=== PATIENT | male | born 1965 | race Caucasian/White ===

== ENCOUNTER 2025-02-14 08:45 | Outpatient (RCR) | payer BC, SELFPAY ==
[2025-01-31 09:09] VITALS: BP 149/60; PULSE 62; RESP 18; TEMP 35.8
--- NOTE | 2025-01-31 12:54 | PCM.WC.HP ---
History of Present Illness Date of Service: 01/31/25 Chief Complaint: Right hallux ulceration History of Wound: Patient is a 59-year-old male who presents to the wound care center for nonhealing ulceration of the right distal hallux tuft. 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 Patient was previously following with Dr. Kearns who was discussing likely surgical intervention for a hallucal IPJ fusion to treat underlying deformity. Patient is changing dressing daily to the right hallux with Neosporin and dry sterile gauze. He previously feels that the ulceration started after removal of his right great toe nail to treat onychomycosis. He does follow with neurologist Dr. Drake for neuropathy workup. He was prescribed gabapentin for his neuropathy but does not wish to take this due to side effects such as drowsiness. Patient states the ulceration has been present for the last 5 to 6 weeks and has not demonstrated much improvement with current treatment. He was referred to the wound care center for continued care of the ulceration and further evaluation. He currently denies N/V/F/chills. Denies further complaints. FORMERLY [facility], 1928–1983 Allergy/AdvReac Type Severity Reaction Status Date / Time No Known Allergies Allergy Verified 01/31/25 09:01 ROS Constitutional Constitutional: Denies anorexia, change in weight, chills or fever(s) Eyes Eyes: Denies blurry vision, change in vision or double vision ENT HEENT: Denies dysphagia, nasal congestion or nasal discharge Cardiovascular Cardiovascular: Denies chest pain, claudication or palpitations Respiratory/Chest Respiratory/Chest: Denies cough, shortness of breath at rest or wheezing Gastrointestinal Gastrointestinal: Denies abdominal pain, constipation, diarrhea, nausea or vomiting Genitourinary Genitourinary: Denies dysuria, hematuria or urinary frequency Musculoskeletal Musculoskeletal: Denies joint pain, joint stiffness or joint swelling Integumentary Integumentary: Denies jaundice, lesions, pruritus or rash Neurologic Neurologic: Denies dizziness, numbness or seizures Psychiatric Psychiatric: Denies anxiety or depression Endocrine Endocrinology: Denies cold intolerance or heat intolerance Hematologic/Lymphatic Hematologic/Lymphatic: Denies easy bleeding or easy bruising Vital Signs Vital Signs Vital Signs: 01/31/25 09:09 Temperature 96.5 F L Temperature Source Temporal Pulse Rate 62 Respiratory Rate 18 Blood Pressure 149/60 H Blood Pressure Mean 89 Blood Pressure Source Monitor Blood Pressure Position Semi-Fowlers Blood Pressure Location Right Arm Oxygen Delivery Method Room Air Physical Exam Const alert, oriented x3 and no apparent distress General Appearance: cooperative HEENT Head and Scalp: normal to inspection Eyes General Eye: normal appearance of both eyes Neck General: normal visual inspection Lymph Lymphatic: no lymphadenopathy noted and no lymphedema noted Resp normal respiratory effort Cardio regular rate and regular rhythm Extremity no calf tenderness Extremity Narrative: Right lower extremity: Vascular: DP and PT pulses palpable, CFT less than 3 seconds digits, normal temperature gradient. Hair growth is diminished to digits. Neurologic: Gross sensation intact. Protective sensation is diminished secondary to idiopathic neuropathy Musculoskeletal: Muscle strength 5/5 age-appropriate. Decreased range of motion of the ankle joint dorsiflexion without pain or crepitus with the knee extended. Decreased range of motion of the first MTPJ without pain or crepitus. Hallux malleus deformity noted. No pain to palpation of calf. No pain to palpation about the ulcerative site. Dermatologic: There is a full-thickness ulceration appreciated to the distal medial hallux tuft secondary to hallux malleus deformity. Ulceration demonstrates mixed fibrogranular layer. There is some surrounding hyperkeratosis about the ulcerative rim. No signs of infection. Skin no rashes or lesions noted Neuro moves all extremities Debridement Note Debridement Note Wound debrided: Right hallux distal tuft Laterality: Right Wound Grade/Stage: Schulz stage I Type of Debridement: Excisional debridement Anesthesia Used: 5% Lidocaine Gel Depth: Down to and including healthy tissue and in the subcutaneous layer Percentage of wound debrided: 100 Instrument Used: #15 blade Tissue Removed: Fibrous, devitalized subcutaneous, biofilm, slough Severity: Fat Layer Exposed Amount of bleeding with debridement: Mild Bleeding Controlled with: Compression and gauze Patient tolerated procedure: Patient tolerated procedure well Post-Debridement Measurements and Additional Note: Post-Debridement Measurements/Treatment - Nurse 1 - General Ulcer Assessment Start: 01/31/25 08:48 Freq: Status: Active Protocol: SHELLEY Activity Type Activity Date Activity User E-sign Co-sign Detail Recorded Client Recorded Date Recorded By Document 01/31/25 09:09 MIMA [id number] 01/31/25 09:29 DS 01/31/25 09:09 - Today's Visit Information Type of service Initial Visit Arrival Mode Ambulatory Patient Identification Verified (Name & Yes ) Patient Requires Transmission-Based No Precautions Safety Precautions Fall Prevention Vital Signs Temperature (97.8 F-99.1 F) 96.5 F L Temperature Source Temporal Pulse Rate (60-100) 62 Pulse Location Monitor Respiratory Rate (12-18) 18 Respiratory rate source Observation Oxygen Delivery Method Room Air Blood Pressure (90/60-120/80) 149/60 H Blood Pressure Mean 89 Source Monitor Position Semi-Fowlers Blood Pressure Location Right Arm Pain Scale: 0-10 Numeric Is Patient Pain Free? No toe -Description Aching -Intensity 3 -Duration (hours) Acute -Pain Behavior No Change in Behavior -Pain Aggravating Factors Walking -Alleviating Factors/Interventions Emotional Support Lower Extremity Assessment/ Foot Assessment/ Toe Nail Assessment Right -Posterior Tibial Palpable Yes -Posterior Tibial Doppler Multiphasic -Dorsalis Pedis Palpable Yes -Dorsalis Pedis Doppler Multiphasic -Hair Growth on Legs Yes -Hair Growth on Toes Yes -Temperature of Extremity Cool -Prior Foot Ulcer No -Charcot Joint No -Prior Amputation No -Thick No -Discolored No -Deformed Yes -Improper Length & Hygeine No Communication Assessment Preferred language [place] Able to Read Yes Able to Write Yes Communication Tools None Right Hearing Abillity Hard of Hearing ,Use of Hearing Aid Left Hearing Abillity Hard of Hearing ,Use of Hearing Aid Visual Assistive Devices Glasses Teaching Assessment Preferences Verbal,Written, Demonstration Barriers to Learning None Readiness To Learn Excellent Willingness to Engage in Self Management High Activies Readiness to Engage in Self Management High Activities Anxiety Level Calm Cooperation Cooperative Perception Coherent Interest in Health Problem Asks Questions Education Importance Acknowledges Need Does Patient Smoke tobacco or other No substances Is Patient Diabetic No Functional Assessment Recent Decline in Ability to Perform Denies Any Declines Culture/Mu-Ism/Circulation Sales Representative Cultural/Mu-Ism Needs that may affect No Treatment Plan Teaching: Wound Center *Welcome to the Wound Center -Person Taught Patient -Teaching Method Discussion -Response to teaching Verbalize Understanding WC - Nurse 1 - General Ulcer Measurement Start: 01/31/25 08:48 Freq: Status: Active Protocol: Activity Type Activity Date Activity User E-sign Co-sign Detail Recorded Client Recorded Date Recorded By Document 01/31/25 09:46 DS [id number] 01/31/25 09:46 DS 01/31/25 09:46 Wound Center Nurse 1 #1 right great toe -Current Size (cm) - Length 0.4 -Current Size (cm) - Width 0.4 -Current Size (cm) - Depth 0.1 -Total Square Cm 0.16 -Date of Last Picture (Recall this 01/31/25 field) -Photo Taken Yes -Tunneling No -Undermining/Tunneling No -Circular Undermining No -Exudate Amt None Present -Wound Margin Distinct, Outline Attached -Granulation Amt Small (1-33%) -Granulation Quality Jamul -Texture (Amanda-wound Skin Appearance) Assessed,Callus -Moisture (Amanda-wound Skin Appearance) Assessed -Color (Amanda-wound Skin Appearance) Assessed -Temperature (Amanda-wound Skin No Abnormality Appearance) (Pt Warm) -Tenderness on Palpation (Amanda-wound No Skin Appearance) -Ulcer Cleansing Soap and Water -Anesthetic Used 5% Lidocaine Gel WC - Nurse 2 - General Ulcer CM Notes Start: 01/31/25 08:48 Freq: Status: Active Protocol: Activity Type Activity Date Activity User E-sign Co-sign Detail Recorded Client Recorded Date Recorded By Document 01/31/25 09:45 BMF [id number] 01/31/25 09:56 BMF Edit Result 01/31/25 09:45 BMF (1) [id number] 01/31/25 09:58 BMF (1) #1- R GREAT TOE PLANTAR - Post Debridement (cm) - Length => 0.4 - Post Debridement (cm) - Width => 0.4 - Post Debridement (cm) - Depth => 0.1 - Total Square (Post) (cm) => 0.16 - Area of Debridement (cm) - Length => 0.4 - Area of Debridement (cm) - Width => 0.4 - Total Square (Area) (cm) => 0.16 01/31/25 09:45 Wound Center Nurse 2 #1- R GREAT TOE PLANTAR -Time 09:46 -Correct Patient Yes -Correct Side, Site, Position Yes -Correct Procedure Yes -Procedure Performed Yes -Type of Procedure Debridement -Clinical Debridement Subcutaneous -Tissue Removed Subcutaneous -Post Debridement (cm) - Length 0.4 -Post Debridement (cm) - Width 0.4 -Post Debridement (cm) - Depth 0.1 -Total Square (Post) (cm) 0.16 -Area of Debridement (cm) - Length 0.4 -Area of Debridement (cm) - Width 0.4 -Total Square (Area) (cm) 0.16 -Tunneling No -Undermining/Tunneling No -Circular Undermining No -Wound/Ulcer Outcome Not Healed -Ulcer Cleansing Rinsed/ Irrigated with Saline -Foul Odor after Cleansing No -Bioengineered Tissue No -Bleeding Controlled with Pressure -Treatment Response Procedure Tolerated Well -Debridement - Subq, 1st 20sq cm Yes Pain Scale: 0-10 Numeric Is Patient Pain Free? Yes - Nurse 3 - General Ulcer D/C NN Start: 01/31/25 08:48 Freq: Status: Active Protocol: Activity Type Activity Date Activity User E-sign Co-sign Detail Recorded Client Recorded Date Recorded By Document 01/31/25 10:03 DL [id number] 01/31/25 10:08 DL 01/31/25 10:03 Wound Care Center Nurse 3 #1- R GREAT TOE PLANTAR -Ulcer Cleansing Rinsed/ Irrigated with Saline -Foul Odor after Cleansing No -Primary Dressing Applied Promogran [place] Matter -Primary Dressing Covered/Secured with Dry Gauze, Secured with Tape -Other Covering COBAN -Promogran [place] Matter 1 Pain Scale: 0-10 Numeric Is Patient Pain Free? Yes WC - Visit Discharge Discharge Condition Stable Ambulatory Status Ambulatory Transportation Private Auto Assessment/Plan Assessment/Plan (1) Pressure ulcer of toe of right foot, stage 2: CODE(S): L89.892 - Pressure ulcer of other site, stage 2 (2) Hallux malleus of right foot: CODE(S): M20.31 - Hallux varus (acquired), right foot (3) Other hereditary and idiopathic neuropathies: CODE(S): G60.8 - Other hereditary and idiopathic neuropathies PLAN: Plan Patient seen and evaluated Predebridement measurement 0.3 cm x 0.3 cm x 0.1 cm Postdebridement measurement 0.4 cm x 0.4 cm x 0.1 cm Ulceration underwent debridement as noted in the clinical panel above. Shawnee applied to the wound base with dry sterile dressing. He is to change dressing daily. Offloading felt padding placed to plantar aspect of first metatarsal head simulating Delgado's extension in addition to just below the base of the distal phalanx to simulate crest style padding on his current orthotic for offloading of the distal hallux. I suspect that his hallux malleus deformity is contributing to continued ulceration. Also discussed importance of not clawing his toes to the ground to aid in stability. Discussed surgical intervention/options today, 01/31/25 with the patient consisting of flexor tenotomy/tendon lengthening versus arthrodesis of the hallucal interphalangeal joint. He has previously had these options discussed with Dr. Kearns when he was under his care prior to wound care center treatment. Discussed 1 of these 2 options would be necessary to heal the ulceration for definitive treatment as his deformity is contributing to the ulceration and will not heal without any intervention performed. All questions were answered to the patient's level of satisfaction pertaining to both surgical options. Typical postoperative period was reviewed for both options. 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 I have discussed with him that he should think over these 2 options presented and pick the best option that fits his lifestyle so that he may still heal. Discussed with him we may attempt current conservative treatment of offload this but if ulcer fails to heal or he experiences recidivism of the site intervention may be necessary to prevent continued problems, infection, or amputation. Discussed adequate protein intake to aid in wound healing. [place] supplementation versus boost was recommended. Discussed signs and symptoms of infection. Discussed if he notices redness around the ulcerative site that moves up the toe and onto the foot, any purulent drainage from the wound site, increasing foul odor from the wound site, or if he experiences fever greater than 101 degree accompanied by nausea, vomiting, chills of these are signs of a progressing infection and he should report to the ED for IV antibiotics and for further evaluation. He is understanding of this today. The following work up and care recommendations were made: Dressing: Shawnee and dressed with dry sterile dressing. Change dressing daily. Wash: Soap and water Tissue growth optimization: Shawnee Offload: Offloading padding on current orthotic Vascular: DP and PT pulses palpable with adequate cap fill time, do not feel this is impacting healing status Edema: None Infection: No signs of infection Pain: May take [id number] Tylenol as needed for discomfort Host factors: Advanced age, increased pressure at the distal toe/hallux malleus deformity right foot I answered all the patient's questions. To return to the wound healing center in 1 week or call sooner if the patient has any questions or concerns.
--- NOTE | 2025-01-31 13:43 | WC ---
PHOTO-RIGHT GREAT TOE 01/31/25
[2025-02-07 08:35] VITALS: BP 144/88; PULSE 68; RESP 16; TEMP 35.9
--- NOTE | 2025-02-07 09:00 | PN.PCM_ITS ---
History of Present Illness Date of Service: 02/07/25 Chief Complaint: Right hallux ulceration History of Wound: Patient is a 59-year-old male who presents to the wound care center for nonhealing ulceration of the right distal hallux tuft. 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 Patient was previously following with Dr. Kearns who was discussing likely surgical intervention for a hallucal IPJ fusion to treat underlying deformity. Patient is changing dressing daily to the right hallux with Neosporin and dry sterile gauze. He previously feels that the ulceration started after removal of his right great toe nail to treat onychomycosis. He does follow with neurologist Dr. Drake for neuropathy workup. He was prescribed gabapentin for his neuropathy but does not wish to take this due to side effects such as drowsiness. Patient states the ulceration has been present for the last 5 to 6 weeks and has not demonstrated much improvement with current treatment. He was referred to the wound care center for continued care of the ulceration and further evaluation. He currently denies N/V/F/chills. Denies further complaints. Subjective Subjective This is a 59-year-old male who returns to the wound care center today for continued care of a plantar distal tuft ulceration of the right hallux secondary to hammertoe deformity. Patient reports that he continues to dress the site daily and is noticing that the wound is decreasing in size thinks to current offloading measures. Denies constitutional symptoms today. Denies further complaints Objective Data Objective Data Vital Signs: Vital Signs Temp Pulse Resp BP O2 Del Method 96.7 F L 68 16 144/88 H Room Air 02/07/25 08:35 02/07/25 08:35 02/07/25 08:35 02/07/25 08:35 01/31/25 09:09 Oxygen Delivery Method Room Air Physical Exam Const alert, oriented x3 and no apparent distress General Appearance: cooperative Eyes General Eye: normal appearance of both eyes Neck General: normal visual inspection Lymph Lymphatic: no lymphadenopathy noted and no lymphedema noted Resp normal respiratory effort Cardio regular rate and regular rhythm Extremity no calf tenderness Extremity Narrative: Right lower extremity: Vascular: DP and PT pulses palpable, CFT less than 3 seconds digits, normal temperature gradient. Hair growth is diminished to digits. Neurologic: Gross sensation intact. Protective sensation is diminished secondary to idiopathic neuropathy Musculoskeletal: Muscle strength 5/5 age-appropriate. Decreased range of motion of the ankle joint dorsiflexion without pain or crepitus with the knee extended. Decreased range of motion of the first MTPJ without pain or crepitus. Hallux malleus deformity noted. No pain to palpation of calf. No pain to palpation about the ulcerative site. Dermatologic: There is a full-thickness ulceration appreciated to the distal medial hallux tuft secondary to hallux malleus deformity. Ulceration demonstrates mixed fibrogranular layer. There is some surrounding hyperkeratosis about the ulcerative rim. No signs of infection. Skin no rashes or lesions noted Neuro moves all extremities Debridement Note Debridement Note Wound debrided: Distal tuft right hallux Laterality: Right Wound Grade/Stage: Schulz stage I Type of Debridement: Excisional debridement Anesthesia Used: 5% Lidocaine Gel Depth: Down to and including healthy tissue and in the subcutaneous layer Percentage of wound debrided: 100 Instrument Used: - (1 mm curette) Tissue Removed: Fibrous, devitalized subcutaneous, biofilm, slough Severity: Fat Layer Exposed Amount of bleeding with debridement: Mild Bleeding Controlled with: Compression and gauze Patient tolerated procedure: Patient tolerated procedure well Post-Debridement Measurements and Additional Note: Post-Debridement Measurements/Treatment - Nurse 1 - General Ulcer Assessment Start: 01/31/25 08:48 Freq: Status: Active Protocol: SHELLEY Activity Type Activity Date Activity User E-sign Co-sign Detail Recorded Client Recorded Date Recorded By Document 01/31/25 09:09 DS [id number] 01/31/25 09:29 DS Document 02/07/25 08:35 DL [id number] 02/07/25 08:39 DL 01/31/25 02/07/25 09:09 08:35 - Today's Visit Information Type of service Initial Visit 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 ) Arrival Mode Ambulatory Ambulatory Transfer Assistance None Patient Identification Verified (Name & Yes Yes ) Patient Requires Transmission-Based No No Precautions Safety Precautions Fall Prevention Vital Signs Temperature (97.8 F-99.1 F) 96.5 F L 96.7 F L Temperature Source Temporal Temporal Pulse Rate (60-100) 62 68 Pulse Location Monitor Monitor Respiratory Rate (12-18) 18 16 Respiratory rate source Observation Observation Oxygen Delivery Method Room Air Blood Pressure (90/60-120/80) 149/60 H 144/88 H Blood Pressure Mean (mm Hg) 89 106 Source Monitor Monitor Position Semi-Fowlers Blood Pressure Location Right Arm History Since Last Visit- (Skip if this is Patient's initial visit) Have you changed medications since your No last visit? Any new allergies or adverse reactions No Had a fall/change in ADL's that may No increase risk of falls Signs or symptoms of abuse and/or No neglect since last visit Have you been in the hospital since your No last visit? Has dressing in place as prescribed Yes Has compression in place as prescribed N/A Has offloadiing in place as prescribed Yes Experienced any changes in pain level or No management Right Footwear Ancram/Foam Pain Scale: 0-10 Numeric Is Patient Pain Free? No Yes toe -Description Aching -Intensity 3 -Duration (hours) Acute -Pain Behavior No Change in Behavior -Pain Aggravating Factors Walking -Alleviating Factors/Interventions Emotional Support Lower Extremity Assessment/ Foot Assessment/ Toe Nail Assessment Right -Posterior Tibial Palpable Yes -Posterior Tibial Doppler Multiphasic -Dorsalis Pedis Palpable Yes -Dorsalis Pedis Doppler Multiphasic -Hair Growth on Legs Yes -Hair Growth on Toes Yes -Temperature of Extremity Cool -Prior Foot Ulcer No -Charcot Joint No -Prior Amputation No -Thick No -Discolored No -Deformed Yes -Improper Length & Hygeine No Communication Assessment Preferred language [place] Able to Read Yes Able to Write Yes Communication Tools None Right Hearing Abillity Hard of Hearing ,Use of Hearing Aid Left Hearing Abillity Hard of Hearing ,Use of Hearing Aid Visual Assistive Devices Glasses Teaching Assessment Preferences Verbal,Written, Demonstration Barriers to Learning None Readiness To Learn Excellent Willingness to Engage in Self Management High Activies Readiness to Engage in Self Management High Activities Anxiety Level Calm Cooperation Cooperative Perception Coherent Interest in Health Problem Asks Questions Education Importance Acknowledges Need Does Patient Smoke tobacco or other No substances Is Patient Diabetic No Functional Assessment Recent Decline in Ability to Perform Denies Any Declines Culture/Nondenominational/Dukey Rider Cultural/Nondenominational Needs that may affect No Treatment Plan Teaching: Wound Center *Welcome to the Wound Center -Person Taught Patient -Teaching Method Discussion -Response to teaching Verbalize Understanding WC - Nurse 1 - General Ulcer Measurement Start: 01/31/25 08:48 Freq: Status: Active Protocol: Activity Type Activity Date Activity User E-sign Co-sign Detail Recorded Client Recorded Date Recorded By Document 01/31/25 09:46 DS [id number] 01/31/25 09:46 DS Document 02/07/25 08:35 DL [id number] 02/07/25 08:39 DL 01/31/25 02/07/25 09:46 08:35 Wound Center Nurse 1 #1 right great toe -Current Size (cm) - Length 0.4 -Current Size (cm) - Width 0.4 -Current Size (cm) - Depth 0.1 -Total Square Cm 0.16 -Date of Last Picture (Recall this 01/31/25 field) -Photo Taken Yes -Tunneling No -Undermining/Tunneling No -Circular Undermining No -Exudate Amt None Present -Wound Margin Distinct, Outline Attached -Granulation Amt Small (1-33%) -Granulation Quality Renova -Texture (Amanda-wound Skin Appearance) Assessed,Callus -Moisture (Amanda-wound Skin Appearance) Assessed -Color (Amanda-wound Skin Appearance) Assessed -Temperature (Amanda-wound Skin No Abnormality Appearance) (Pt Warm) -Tenderness on Palpation (Amanda-wound No Skin Appearance) -Ulcer Cleansing Soap and Water -Anesthetic Used 5% Lidocaine Gel #1- R GREAT TOE PLANTAR -Current Size (cm) - Length 0.1 -Current Size (cm) - Width 0.1 -Current Size (cm) - Depth 0.2 -Total Square Cm 0.01 -Photo Taken Yes -Maximum Distance #2 (cm) 0.1 -Circular Undermining Yes -Exudate Amt None Present -Wound Margin Distinct, Outline Attached -Granulation Amt Small (1-33%) -Granulation Quality Pale,Renova -Necrosis Amt None Present (0 %) -Structure Exposed N/A -Texture (Amanda-wound Skin Appearance) Callus -Moisture (Amanda-wound Skin Appearance) No Abnormality -Color (Amanda-wound Skin Appearance) No Abnormality -Temperature (Amanda-wound Skin No Abnormality Appearance) (Pt Warm) -Tenderness on Palpation (Amanda-wound No Skin Appearance) -Ulcer Cleansing Rinsed/ Irrigated with Saline -Foul Odor after Cleansing No -Anesthetic Used 5% Lidocaine Gel WC - Nurse 2 - General Ulcer CM Notes Start: 01/31/25 08:48 Freq: Status: Active Protocol: Activity Type Activity Date Activity User E-sign Co-sign Detail Recorded Client Recorded Date Recorded By Document 01/31/25 09:45 BMF [id number] 01/31/25 09:56 BMF Edit Result 01/31/25 09:45 BMF (1) [id number] 01/31/25 09:58 BMF Document 02/07/25 08:48 BMF [id number] 02/07/25 08:51 BMF (1) #1- R GREAT TOE PLANTAR - Post Debridement (cm) - Length => 0.4 - Post Debridement (cm) - Width => 0.4 - Post Debridement (cm) - Depth => 0.1 - Total Square (Post) (cm) => 0.16 - Area of Debridement (cm) - Length => 0.4 - Area of Debridement (cm) - Width => 0.4 - Total Square (Area) (cm) => 0.16 01/31/25 02/07/25 09:45 08:48 Wound Center Nurse 2 #1- R GREAT TOE PLANTAR -Time 09:46 08:48 -Correct Patient Yes Yes -Correct Side, Site, Position Yes Yes -Correct Procedure Yes Yes -Procedure Performed Yes Yes -Type of Procedure Debridement Debridement -Clinical Debridement Subcutaneous Subcutaneous -Tissue Removed Subcutaneous Subcutaneous -Post Debridement (cm) - Length 0.4 0.1 -Post Debridement (cm) - Width 0.4 0.1 -Post Debridement (cm) - Depth 0.1 0.1 -Total Square (Post) (cm) 0.16 0.01 -Area of Debridement (cm) - Length 0.4 0.1 -Area of Debridement (cm) - Width 0.4 0.1 -Total Square (Area) (cm) 0.16 0.01 -Tunneling No No -Undermining/Tunneling No No -Circular Undermining No No -Wound/Ulcer Outcome Not Healed Not Healed -Ulcer Cleansing Rinsed/ Rinsed/ Irrigated with Irrigated with Saline Saline -Foul Odor after Cleansing No No -Bioengineered Tissue No No -Bleeding Controlled with Pressure Pressure -Treatment Response Procedure Procedure Tolerated Well Tolerated Well -Debridement - Subq, 1st 20sq cm Yes Yes Pain Scale: 0-10 Numeric Is Patient Pain Free? Yes Yes WC - Nurse 3 - General Ulcer D/C NN Start: 01/31/25 08:48 Freq: Status: Active Protocol: Activity Type Activity Date Activity User E-sign Co-sign Detail Recorded Client Recorded Date Recorded By Document 01/31/25 10:03 DL [id number] 01/31/25 10:08 DL 01/31/25 10:03 Wound Care Center Nurse 3 #1- R GREAT TOE PLANTAR -Ulcer Cleansing Rinsed/ Irrigated with Saline -Foul Odor after Cleansing No -Primary Dressing Applied Promogran [place] Matter -Primary Dressing Covered/Secured with Dry Gauze, Secured with Tape -Other Covering CO[place]AN -Promogran [place] Matter 1 Pain Scale: 0-10 Numeric Is Patient Pain Free? Yes WC - Visit Discharge Discharge Condition Stable Ambulatory Status Ambulatory Transportation Private Auto Assessment/Plan Assessment/Plan (1) Pressure ulcer of toe of right foot, stage 2: CODE(S): L89.892 - Pressure ulcer of other site, stage 2 (2) Hallux malleus of right foot: CODE(S): M20.31 - Hallux varus (acquired), right foot (3) Other hereditary and idiopathic neuropathies: CODE(S): G60.8 - Other hereditary and idiopathic neuropathies PLAN: Plan Patient seen and evaluated Predebridement measurement 0.1 cm x 0.1 cm x 0.1 cm Postdebridement measurement 0.1 cm x 0.1 cm x 0.1 cm Ulceration underwent debridement as noted in the clinical panel above. Shawnee applied to the wound base with dry sterile dressing. He is to change dressing daily. Offloading felt padding remains in place to plantar aspect of first metatarsal head simulating Delgado's extension in addition to just below the base of the distal phalanx to simulate crest style padding on his current orthotic for offloading of the distal hallux. I suspect that his hallux malleus deformity is contributing to continued ulceration. This is confirmed by decreasing ulceration size at current visit today and less callus formation about the ulcerative rim due to the offloading p adding that was placed at previous visit. Also discussed importance of not clawing his toes to the ground to aid in stability. Discussed surgical intervention/options 01/31/25 with the patient consisting of flexor tenotomy/tendon lengthening versus arthrodesis of the hallucal interphalangeal joint. He has previously had these options discussed with Dr. Kearns when he was under his care prior to wound care center treatment. Discussed 1 of these 2 options would be necessary to heal the ulceration for definitive treatment as his deformity is contributing to the ulceration and will not heal without any intervention performed. All questions were answered to the patient's level of satisfaction pertaining to both surgical options. Typical postoperative period was reviewed for both options. 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 I have discussed with him that he should think over these 2 options presented and pick the best option that fits his lifestyle so that he may still heal. Discussed with him we may attempt current conservative treatment of offload this but if ulcer fails to heal or he experiences recidivism of the site intervention may be necessary to prevent continued problems, infection, or amputation. Discussed adequate protein intake to aid in wound healing. South supplem entation versus boost was recommended. Discussed signs and symptoms of infection. Discussed if he notices redness around the ulcerative site that moves up the toe and onto the foot, any purulent drainage from the wound site, increasing foul odor from the wound site, or if he experiences fever greater than 101 degree accompanied by nausea, vomiting, chills of these are signs of a progressing infection and he should report to the ED for IV antibiotics and for further evaluation. He is understanding of this today. The following work up and care recommendations were made: Dressing: Shawnee and dressed with dry sterile dressing. Change dressing daily. Wash: Soap and water Tissue growth optimization: Shawnee Offload: Offloading padding on current orthotic Vascular: DP and PT pulses palpable with adequate cap fill time, do not feel this is impacting healing status Edema: None Infection: No signs of infection Pain: May take [id number] Tylenol as needed for discomfort Host factors: Advanced age, increased pressure at the distal toe/hallux malleus deformity right foot I answered all the patient's questions. To return to the wound healing center in 1 week or call sooner if the patient has any questions or concerns.
--- NOTE | 2025-02-08 09:16 | WC ---
PHOTO-RIGHT GREAT TOE 02/07/25
[2025-02-14 08:42] VITALS: BP 129/65; PULSE 71; RESP 14; TEMP 35.6
--- NOTE | 2025-02-14 09:48 | PCM.WC.PN ---
History of Present Illness Date of Service: 02/14/25 Chief Complaint: Right hallux ulceration History of Wound: Patient is a 59-year-old male who presents to the wound care center for nonhealing ulceration of the right distal hallux tuft. 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 Patient was previously following with Dr. Kearns who was discussing likely surgical intervention for a hallucal IPJ fusion to treat underlying deformity. Patient is changing dressing daily to the right hallux with Neosporin and dry sterile gauze. He previously feels that the ulceration started after removal of his right great toe nail to treat onychomycosis. He does follow with neurologist Dr. Drake for neuropathy workup. He was prescribed gabapentin for his neuropathy but does not wish to take this due to side effects such as drowsiness. Patient states the ulceration has been present for the last 5 to 6 weeks and has not demonstrated much improvement with current treatment. He was referred to the wound care center for continued care of the ulceration and further evaluation. He currently denies N/V/F/chills. Denies further complaints. Subjective Subjective This is a 59-year-old male who returns to the wound care center today for continued care of a plantar distal tuft ulceration of the right hallux secondary to hammertoe deformity. Patient reports that he continues to dress the site daily and believes he has healed with current offloading measures. Denies constitutional symptoms today. Denies further complaints Objective Data Objective Data Vital Signs: Vital Signs Temp Pulse Resp BP O2 Del Method 96.0 F L 71 14 129/65 H Room Air 02/14/25 08:42 02/14/25 08:42 02/14/25 08:42 02/14/25 08:42 01/31/25 09:09 Oxygen Delivery Method Room Air Physical Exam Const alert, oriented x3 and no apparent distress General Appearance: cooperative Eyes General Eye: normal appearance of both eyes Neck General: normal visual inspection Lymph Lymphatic: no lymphadenopathy noted and no lymphedema noted Resp normal respiratory effort Cardio regular rate and regular rhythm Extremity no calf tenderness Extremity Narrative: Right lower extremity: Vascular: DP and PT pulses palpable, CFT less than 3 seconds digits, normal temperature gradient. Hair growth is diminished to digits. Neurologic: Gross sensation intact. Protective sensation is diminished secondary to idiopathic neuropathy Musculoskeletal: Muscle strength 5/5 age-appropriate. Decreased range of motion of the ankle joint dorsiflexion without pain or crepitus with the knee extended. Decreased range of motion of the first MTPJ without pain or crepitus. Hallux malleus deformity noted. No pain to palpation of calf. No pain to palpation about the ulcerative site. Dermatologic: Area of full-thickness ulceration appreciated to the distal medial hallux tuft secondary to hallux malleus deformity has healed. Site does remain friable as this is new epithelialized skin. No signs of infection. Skin no rashes or lesions noted Neuro moves all extremities Debridement Note Debridement Note No debridement was completed: No debridement was completed today Post-Debridement Measurements and Additional Note: Post-Debridement Measurements/Treatment - Nurse 1 - General Ulcer Assessment Start: 01/31/25 08:48 Freq: Status: Active Protocol: SHELLEY Activity Type Activity Date Activity User E-sign Co-sign Detail Recorded Client Recorded Date Recorded By Document 01/31/25 09:09 DS [id number] 01/31/25 09:29 DS Document 02/07/25 08:35 DL [id number] 02/07/25 08:39 DL Document 02/14/25 08:42 ML [id number] 02/14/25 08:47 ML 01/31/25 02/07/25 02/14/25 09:09 08:35 08:42 - Today's Visit Information Type of service Initial Visit Follow-up Visit Follow-up Visit (Physician/FORMING PROCESS WORKER (Physician/FORMING PROCESS WORKER ) ) Arrival Mode Ambulatory Ambulatory Ambulatory Transfer Assistance None Patient Identification Verified (Name & Yes Yes ) Patient Requires Transmission-Based No No Precautions Safety Precautions Fall Prevention Vital Signs Temperature (97.8 F-99.1 F) 96.5 F L 96.7 F L 96.0 F L Temperature Source Temporal Temporal Temporal Pulse Rate (60-100) 62 68 71 Pulse Location Monitor Monitor Monitor Respiratory Rate (12-18) 18 16 14 Respiratory rate source Observation Observation Observation Oxygen Delivery Method Room Air Blood Pressure (90/60-120/80) 149/60 H 144/88 H 129/65 H Blood Pressure Mean (mm Hg) 89 106 86 Source Monitor Monitor Monitor Position Semi-Fowlers Sitting Blood Pressure Location Right Arm Right Arm History Since Last Visit- (Skip if this is Patient's initial visit) Have you changed medications since your No No last visit? Any new allergies or adverse reactions No No Had a fall/change in ADL's that may No No increase risk of falls Signs or symptoms of abuse and/or No No neglect since last visit Have you been in the hospital since your No No last visit? Has dressing in place as prescribed Yes Yes Has compression in place as prescribed N/A No Has offloadiing in place as prescribed Yes N/A Experienced any changes in pain level or No No management Right Footwear Kimmell/Foam Pain Scale: 0-10 Numeric Is Patient Pain Free? No Yes Yes toe -Description Aching -Intensity 3 -Duration (hours) Acute -Pain Behavior No Change in Behavior -Pain Aggravating Factors Walking -Alleviating Factors/Interventions Emotional Support Lower Extremity Assessment/ Foot Assessment/ Toe Nail Assessment Right -Posterior Tibial Palpable Yes -Posterior Tibial Doppler Multiphasic -Dorsalis Pedis Palpable Yes -Dorsalis Pedis Doppler Multiphasic -Hair Growth on Legs Yes -Hair Growth on Toes Yes -Temperature of Extremity Cool -Prior Foot Ulcer No -Charcot Joint No -Prior Amputation No -Thick No -Discolored No -Deformed Yes -Improper Length & Hygeine No Communication Assessment Preferred language [place] Able to Read Yes Able to Write Yes Communication Tools None Right Hearing Abillity Hard of Hearing ,Use of Hearing Aid Left Hearing Abillity Hard of Hearing ,Use of Hearing Aid Visual Assistive Devices Glasses Teaching Assessment Preferences Verbal,Written, Demonstration Barriers to Learning None Readiness To Learn Excellent Willingness to Engage in Self Management High Activies Readiness to Engage in Self Management High Activities Anxiety Level Calm Cooperation Cooperative Perception Coherent Interest in Health Problem Asks Questions Education Importance Acknowledges Need Does Patient Smoke tobacco or other No substances Is Patient Diabetic No Functional Assessment Recent Decline in Ability to Perform Denies Any Declines Culture/Judaism/Epidemiology Internship Cultural/Judaism Needs that may affect No Treatment Plan Teaching: Wound Center *Welcome to the Wound Center -Person Taught Patient -Teaching Method Discussion -Response to teaching Verbalize Understanding WC - Nurse 1 - General Ulcer Measurement Start: 01/31/25 08:48 Freq: Status: Active Protocol: Activity Type Activity Date Activity User E-sign Co-sign Detail Recorded Client Recorded Date Recorded By Document 01/31/25 09:46 DS [id number] 01/31/25 09:46 DS Document 02/07/25 08:35 DL [id number] 02/07/25 08:39 DL Document 02/14/25 08:42 ML [id number] 02/14/25 08:47 ML 01/31/25 02/07/25 02/14/25 09:46 08:35 08:42 Wound Center Nurse 1 #1 right great toe -Current Size (cm) - Length 0.4 -Current Size (cm) - Width 0.4 -Current Size (cm) - Depth 0.1 -Total Square Cm 0.16 -Date of Last Picture (Recall this 01/31/25 field) -Photo Taken Yes -Tunneling No -Undermining/Tunneling No -Circular Undermining No -Exudate Amt None Present -Wound Margin Distinct, Outline Attached -Granulation Amt Small (1-33%) -Granulation Quality [place] -Texture (Amanda-wound Skin Appearance) Assessed,Callus -Moisture (Amanda-wound Skin Appearance) Assessed -Color (Amanda-wound Skin Appearance) Assessed -Temperature (Amanda-wound Skin No Abnormality Appearance) (Pt Warm) -Tenderness on Palpation (Amanda-wound No Skin Appearance) -Ulcer Cleansing Soap and Water -Anesthetic Used 5% Lidocaine Gel #1- R GREAT TOE PLANTAR -Current Size (cm) - Length 0.1 0.1 -Current Size (cm) - Width 0.1 0.1 -Current Size (cm) - Depth 0.2 0.1 -Total Square Cm 0.01 0.01 -Photo Taken Yes -Maximum Distance #2 (cm) 0.1 -Circular Undermining Yes -Exudate Amt None Present None Present -Wound Margin Distinct, Outline Attached -Granulation Amt Small (1-33%) None Present (0 %) -Granulation Quality Pale,[place] -Slough/Fibrin No -Necrosis Amt None Present (0 None Present (0 %) %) -Structure Exposed N/A -Texture (Amanda-wound Skin Appearance) Callus Assessed -Moisture (Amanda-wound Skin Appearance) No Abnormality Assessed -Color (Amanda-wound Skin Appearance) No Abnormality Assessed -Temperature (Amanda-wound Skin No Abnormality No Abnormality Appearance) (Pt Warm) (Pt Warm) -Tenderness on Palpation (Amanda-wound No No Skin Appearance) -Ulcer Cleansing Rinsed/ Rinsed/ Irrigated with Irrigated with Saline Saline -Foul Odor after Cleansing No No -Anesthetic Used 5% Lidocaine 5% Lidocaine Gel Gel WC - Nurse 2 - General Ulcer CM Notes Start: 01/31/25 08:48 Freq: Status: Active Protocol: Activity Type Activity Date Activity User E-sign Co-sign Detail Recorded Client Recorded Date Recorded By Document 01/31/25 09:45 BMF [id number] 01/31/25 09:56 BMF Edit Result 01/31/25 09:45 BMF (1) [id number] 01/31/25 09:58 BMF Document 02/07/25 08:48 BMF [id number] 02/07/25 08:51 BMF Document 02/14/25 09:28 DS [id number] 02/14/25 09:28 DS (1) #1- R GREAT TOE PLANTAR - Post Debridement (cm) - Length => 0.4 - Post Debridement (cm) - Width => 0.4 - Post Debridement (cm) - Depth => 0.1 - Total Square (Post) (cm) => 0.16 - Area of Debridement (cm) - Length => 0.4 - Area of Debridement (cm) - Width => 0.4 - Total Square (Area) (cm) => 0.16 01/31/25 02/07/25 02/14/25 09:45 08:48 09:28 Wound Center Nurse 2 #1- R GREAT TOE PLANTAR -Time 09:46 08:48 09:28 -Correct Patient Yes Yes Yes -Correct Side, Site, Position Yes Yes Yes -Correct Procedure Yes Yes -Procedure Performed Yes Yes No -Type of Procedure Debridement Debridement -Clinical Debridement Subcutaneous Subcutaneous -Tissue Removed Subcutaneous Subcutaneous -Post Debridement (cm) - Length 0.4 0.1 -Post Debridement (cm) - Width 0.4 0.1 -Post Debridement (cm) - Depth 0.1 0.1 -Total Square (Post) (cm) 0.16 0.01 -Area of Debridement (cm) - Length 0.4 0.1 -Area of Debridement (cm) - Width 0.4 0.1 -Total Square (Area) (cm) 0.16 0.01 -Tunneling No No -Undermining/Tunneling No No -Circular Undermining No No -Wound/Ulcer Outcome Not Healed Not Healed Healed- Epithelialized -Ulcer Cleansing Rinsed/ Rinsed/ Irrigated with Irrigated with Saline Saline -Foul Odor after Cleansing No No -Bioengineered Tissue No No -Bleeding Controlled with Pressure Pressure -Treatment Response Procedure Procedure Tolerated Well Tolerated Well -Debridement - Subq, 1st 20sq cm Yes Yes Pain Scale: 0-10 Numeric Is Patient Pain Free? Yes Yes Yes - Nurse 3 - General Ulcer D/C NN Start: 01/31/25 08:48 Freq: Status: Active Protocol: Activity Type Activity Date Activity User E-sign Co-sign Detail Recorded Client Recorded Date Recorded By Document 01/31/25 10:03 DL [id number] 01/31/25 10:08 DL Document 02/07/25 09:00 BMF [id number] 02/07/25 09:01 BMF Document 02/14/25 09:32 DS [id number] 02/14/25 09:33 DS 01/31/25 02/07/25 02/14/25 10:03 09:00 09:32 Wound Care Center Nurse 3 #1- R GREAT TOE PLANTAR -Ulcer Cleansing Rinsed/ Rinsed/ Irrigated with Irrigated with Saline Saline -Foul Odor after Cleansing No No -Primary Dressing Applied Promogran Promogran [place] Matter Shaw[place] Matter -Other Dressing coban to secure -Primary Dressing Covered/Secured with Dry Gauze, Dry Gauze Secured with Tape -Other Covering [place] -Promogran [place] Matter 1 1 -Wound Comment(s) bandaid placed. healed and d/c Treatment Response Procedure Tolerated Well Pain Scale: 0-10 Numeric Is Patient Pain Free? Yes Yes Yes - Visit Discharge Discharge Condition Stable Stable Stable Ambulatory Status Ambulatory Ambulatory Ambulatory Transportation Private Auto Private Auto Private Auto Assessment/Plan Assessment/Plan (1) Pressure ulcer of toe of right foot, stage 2: CODE(S): L89.892 - Pressure ulcer of other site, stage 2 (2) Hallux malleus of right foot: CODE(S): M20.31 - Hallux varus (acquired), right foot (3) Other hereditary and idiopathic neuropathies: CODE(S): G60.8 - Other hereditary and idiopathic neuropathies PLAN: Plan Patient seen and evaluated Predebridement measurement healed Postdebridement measurement healed He will continue to pad and protect with Band-Aid for the next 7 to 10 days. Offloading felt padding remains in place to plantar aspect of first metatarsal head simulating Delgado's extension in addition to just below the base of the distal phalanx to simulate crest style padding on his current orthotic for offloading of the distal hallux. I suspect that his hallux malleus deformity is contributing to continued ulceration. This is confirmed by decreasing ulceration size with healing achieved today and less callus formation about the ulcerative rim due to the offloading padding that was placed. Also discussed importance of not clawing his toes to the ground to aid in stability. Discussed surgical intervention/options 01/31/25 with the patient consisting of flexor tenotomy/tendon lengthening versus arthrodesis of the hallucal interphalangeal joint. He has previously had these options discussed with Dr. Kearns when he was under his care prior to wound care center treatment. Discussed 1 of these 2 options would be necessary to heal the ulceration for definitive treatment as his deformity is contributing to the ulceration and will not heal without any intervention performed. All questions were answered to the patient's level of satisfaction pertaining to both surgical options. Typical postoperative period was reviewed for both options. 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 I have discussed with him that he should think over these 2 options presented and pick the best option that fits his lifestyle so that he may still heal. Discussed with him we may attempt current conservative treatment of offload this but if ulcer fails to heal or he experiences recidivism of the site intervention may be necessary to prevent continued problems, infection, or amputation. He reports that he will be following with Dr. Lopez in [place] as she will be closer for him to follow with regular appointments. He will consider the hallux IPJ arthrodesis to prevent recurrence. The following work up and care recommendations were made: Dressing: Band-Aid to pad and protect for 7 to 10 days Wash: Soap and water Tissue growth optimization: None Offload: Offloading padding on current orthotic Vascular: DP and PT pulses palpable with adequate cap fill time, do not feel this is impacting healing status Edema: None Infection: No signs of infection Pain: May take [id number] Tylenol as needed for discomfort Host factors: Advanced age, increased pressure at the distal toe/hallux malleus deformity right foot With healed status achieved today he is being discharged from the wound care center. I answered all the patient's questions. To return to the wound healing center as needed or call sooner if the patient has any questions or concerns.
--- NOTE | 2025-02-14 14:21 | WC ---
PHOTO-RIGHT GREAT TOE 02/14/25
== END 2025-02-14 09:55 | disposition home or self-care (01) ==
LOC: WC 08:45
PROVIDERS: PCP Family Medicine; Referring Provider Family Medicine; Visit Provider Student in an Organized Health Care Education/Training Program
DX: L89.892 Pressure ulcer of other site, stage 2 (principal); G60.8 Other hereditary and idiopathic neuropathies; M20.31 Hallux varus (acquired), right foot; M20.42 Other hammer toe(s) (acquired), left foot
CPT/HCPCS: 11042; 99203; 99213; G0463